=== PATIENT | female | born 1990 | race Caucasian/White ===

== ENCOUNTER 2017-09-01 18:02 | Emergency (ER) | payer MEDICAID ==
[2017-09-01 18:49] VITALS: BP 115/64
[2017-09-01] MEDS ORDERED: Lactated Ringers 1,000 ML IV ONE (19:09)
[2017-09-01] MEDS ORDERED: Ondansetron 4 MG/2 ML SDV IVPUSH ONE (19:19)
--- NOTE | 2017-09-01 19:25 | EDM.PDOC ---
ED HPI GENERAL MEDICAL PROBLEM - General Chief Complaint: Gastrointestinal Problem Stated Complaint: 14 WEEKS PG VOMITING LAST 6 HOURS Time Seen by Provider: 09/01/17 19:15 Source of Information: Reports: Patient, RN History Limitations: Reports: No Limitations - History of Present Illness INITIAL COMMENTS - FREE TEXT/NARRATIVE: 27 yo female at 15 weeks gestation presents with nausea and vomiting. Has had less of these sx's earlier in her preg, now light-headed with standing. Came here as it is closer to home. OB care in [place]. Onset: Gradual Duration: Week(s):, Getting Worse Location: Reports: Generalized Quality: Reports: Other (no pain) Severity: Moderate Improves with: Reports: None Worsens with: Reports: Other (? 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 PROFESSIONAL: Reports: Other (see below) (B6 and doxylamine) - Related Data Allergies Allergy/AdvReac Type Severity Reaction Status Date / Time amoxicillin trihydrate Allergy Cannot Verified 09/01/17 18:52 [From Augmentin] Remember potassium clavulanate Allergy Cannot Verified 09/01/17 18:52 [From Augmentin] Remember dogs Allergy Other Uncoded 09/01/17 18:52 milk protein extract Allergy Other Uncoded 09/01/17 18:52 Home Meds: Home Meds Doxylamine Succinate [Unisom Sleep Aid] 25 mg PO BEDTIME 09/01/17 [History] Fto114/FA/Omega3/Dha/Fish Oil [ Gummies] 2 tab PO DAILY 09/01/17 [ History] Pyridoxine HCl (Vitamin B6) [B-6] 200 mg PO DAILY 09/01/17 [History] Past Medical History - Past Health History Medical/Surgical History: Denies Medical/Surgical History HEENT History: Reports: Impaired Vision Cardiovascular History: Reports: Heart Murmur Respiratory History: Reports: Asthma Gastrointestinal History: Reports: Cholelithiasis Genitourinary History: Reports: Renal Calculus, UTI, Recurrent 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: , 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 Musculoskeletal History: Reports: Fracture Other Musculoskeletal History: wrist Psychiatric History: Reports: Anxiety, Depression - Past Surgical History GI Surgical History: Reports: Cholecystectomy Social & Family History - Tobacco Use Smoking Status *Q: Current Every Day Smoker Years of Tobacco use: 12 Packs/Tins Daily: 0.5 - Caffeine Use Caffeine Use: Reports: Coffee - Recreational Drug Use Recreational Drug Use: No ED ROS GENERAL - Review of Systems Review Of Systems: See Below Constitutional: Reports: Decreased Appetite HEENT: Reports: No Symptoms Respiratory: Reports: No Symptoms Cardiovascular: Reports: Lightheadedness GI/Abdominal: Reports: Decreased Appetite, Nausea, Vomiting. Denies: Abdominal Pain, Black Stool, Bloody Stool, Constipation, Diarrhea, Difficulty Swallowing, Distension, Flatus, Hematemesis, Hematochezia : Reports: No Symptoms Musculoskeletal: Reports: No Symptoms Skin: Reports: No Symptoms Neurological: Reports: No Symptoms Psychiatric: Reports: No Symptoms ED EXAM - Physical Exam Exam: See Below Exam Limited By: No Limitations General Appearance: Alert, WD/WN, No Apparent Distress Eye Exam: Bilateral Eye: Normal Inspection Ears: Normal External Exam, Normal Canal, Hearing Grossly Normal Nose: Normal Inspection, Normal Mucosa, No Blood Throat/Mouth: Normal Inspection, Normal Lips, Normal Teeth, Normal Oropharynx, Normal Voice, No Airway Compromise Head: Atraumatic, Normocephalic Neck: Normal Inspection, Supple, Non-Tender Respiratory/Chest: No Respiratory Distress, Lungs Clear, Normal Breath Sounds, No Accessory Muscle Use Cardiovascular: Regular Rate, Rhythm, No Edema GI/Abdominal Exam: Soft, Non-Tender, No Distention, Other (gravid) Back Exam: Normal Inspection. No: CVA Tenderness (R), CVA Tenderness (L) Extremities: Normal Inspection, Normal Range of Motion, Non-Tender, No Pedal Edema Neurological: Alert, Oriented, CN II-XII Intact, Normal Cognition, No Motor/ Sensory Deficits Psychiatric: Normal Affect, Normal Mood Skin Exam: Warm, Dry, Intact, Normal Color, No Rash Lymphatic: No Adenopathy Course - Vital Signs Last Recorded V/S: Last Vital Signs Temp 35.6 C 09/01/17 18:57 Pulse 89 09/01/17 18:57 Resp 16 09/01/17 18:57 BP 115/64 09/01/17 18:57 Pulse Ox 99 09/01/17 18:57 - Orders/Labs/Meds Meds: Medications Discontinued Medications Generic Name Dose Route Start Last Admin Trade Name Freq PRN Reason Stop Dose Admin Lactated Ringer's 1,000 mls @ 1,000 mls/hr 09/01/17 19:09 09/01/17 19:49 Ringers, Lactated IV 09/01/17 20:08 1,000 mls/hr BOLUS ONE Administration Ondansetron HCl 4 mg 09/01/17 19:19 09/01/17 19:49 Zofran IVPUSH 09/01/17 19:20 4 mg ONETIME ONE Administration Departure - Departure Time of Disposition: 20:35 Disposition: Home, Self-Care 01 Condition: Good Clinical Impression: Morning sickness, First trimester - Discharge Information Referrals: Roney Loo DPM [Primary Care Provider] - Forms: ED Department Discharge
== END 2017-09-01 21:32 | disposition home or self-care (01) ==
LOC: JP.ED 18:02
DX: O21.9 Vomiting of pregnancy, unspecified (principal); O99.332 Smoking (tobacco) complicating pregnancy, second trimester; F17.210 Nicotine dependence, cigarettes, uncomplicated; Z88.1 Allergy status to other antibiotic agents; Z91.09 Other allergy status, other than to drugs and biological substances; Z79.899 Other long term (current) drug therapy; Z3A.15 15 weeks gestation of pregnancy
CPT/HCPCS: 96361; 96374; 99284; J2405; J7120

== ENCOUNTER 2020-01-20 18:47 | Inpatient (IN) | payer MEDICAID ==
[2020-01-20] MEDS ORDERED: Naloxone 0.4 MG/ML SDV IVPUSH PRN (19:33)
[2020-01-20] MEDS ORDERED: diphenhydrAMINE 50 MG/ML SDV IVPUSH PRN ×2 (19:33)
[2020-01-20] MEDS ORDERED: ePHEDrine 50 MG/ML SDV IVPUSH PRN (19:33)
[2020-01-20] MEDS ORDERED: Lactated Ringers 1,000 ML IV ONE (19:33)
[2020-01-20] MEDS ORDERED: Sodium Chloride 0.9% 10 ML Syringe FLUSH PRN (19:33)
[2020-01-20] MEDS ORDERED: Ropivacaine 200 MG in Premix Bag 1 BAG EPIDUR SCH (19:45)
--- NOTE | 2020-01-20 20:24 | PCM.LDHP ---
L&D History of Present Illness - General Date of Service: 01/20/20 Admit Problem/Dx: Patient Status Order with Admit Dx/Problem 01/20/20 19:33 Patient Status [ADT] Routine Admission Diagnosis/Problem Admission Diagnosis/Problem Source of Information: Patient History Limitations: Reports: No Limitations - Related Data Allergies/Adverse Reactions: Allergies Allergy/AdvReac Type Severity Reaction Status Date / Time amoxicillin trihydrate Allergy Cannot Verified 01/20/20 19:05 [From Augmentin] Remember potassium clavulanate Allergy Cannot Verified 01/20/20 19:05 [From Augmentin] Remember dogs Allergy Other Uncoded 01/20/20 19:06 milk protein extract Allergy Other Uncoded 01/20/20 19:06 Home Medications: Home Meds Doxylamine Succinate [Unisom Sleep Aid] 25 mg PO BEDTIME PRN 09/01/17 [History] Pnv No.103/Folic/Om3s/Fish Oil [ Gummies] 2 tab PO DAILY 09/01/17 [History] hydrOXYzine pamoate [Vistaril] 25 mg PO BEDTIME PRN 01/20/20 [History] Past Medical History - Past Health History Medical/Surgical History: Denies Medical/Surgical History HEENT History: Reports: Impaired Vision Cardiovascular History: Reports: Heart Murmur Respiratory History: Reports: Asthma Gastrointestinal History: Reports: Cholelithiasis Genitourinary History: Reports: Renal Calculus, UTI, Recurrent 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: , 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 Musculoskeletal History: Reports: Fracture Other Musculoskeletal History: wrist Psychiatric History: Reports: Anxiety, Depression - Past Surgical History GI Surgical History: Reports: Cholecystectomy Social & Family History - Family History Family Medical History: Noncontributory - Tobacco Use Tobacco Use Status *Q: Current Every Day Tobacco User Years of Tobacco use: 10 Packs/Tins Daily: 0.2 Used Tobacco, but Quit: No Second Hand Smoke Exposure: No - Caffeine Use Caffeine Use: Reports: Coffee - Recreational Drug Use Recreational Drug Use: No H&P Review of Systems - Review of Systems: Review Of Systems: See Below General: Reports: No Symptoms HEENT: Reports: No Symptoms Pulmonary: Reports: No Symptoms Cardiovascular: Reports: No Symptoms Gastrointestinal: Reports: No Symptoms Genitourinary: Reports: No Symptoms Musculoskeletal: Reports: No Symptoms Skin: Reports: No Symptoms Psychiatric: Reports: No Symptoms Neurological: Reports: No Symptoms Hematologic/Lymphatic: Reports: No Symptoms Immunologic: Reports: No Symptoms L&D Exam - Exam Exam: See Below - Vital Signs Weight: 85.275 kg - OB Specific Contraction Intensity: Moderate to Strong Movement: Active Heart Tones: Present Heart Rate (FHR) Variability: Moderate (6-25 bmp) Presentation: Vertex - Santana Score Santana Score Cervix Position: Midposition Santana Score Consistency: Soft Santana Score Effacement: >80% Santana Score Dilation: 3-4 cm Santana Score Infant's Station: -1 ,0 Santana Score Total: 10 - Exam General: Alert, Oriented, Cooperative HEENT: PERRLA, Conjunctiva Clear, EACs Clear, EOMI, Hearing Intact, Mucosa Moist & [place], Nares Patent, Normal Nasal Septum, Posterior Pharynx Clear, Pupils Equal, Pupils Reactive, TMs Clear Neck: Supple, Trachea Midline Lungs: Clear to Auscultation, Normal Respiratory Effort Cardiovascular: Regular Rate, Regular Rhythm GI/Abdominal Exam: Normal Bowel Sounds, Soft, Non-Tender, No Organomegaly, No Distention, No Abnormal Bruit, No Mass, Pelvis Stable Rectal Exam: Normal Exam, Normal Rectal Tone Genitourinary: Normal external exam, Normal bimanual exam, Normal speculum exam Back Exam: Normal Inspection, Full Range of Motion Extremities: Normal Inspection, Normal Range of Motion, Non-Tender, No Pedal Edema, Normal Capillary Refill Skin: Warm, Dry, Intact Neurological: Cranial Nerves Intact, Reflexes Equal Bilateral Psychiatric: Alert, Normal Affect, Normal Mood - Patient Data Lab Results Last 24 hrs: Laboratory Results - last 24 hr 01/20/20 01/20/20 Range/Units 19:33 19:55 Urine Color Yellow (YELLOW) Urine Appearance Clear (CLEAR) Urine pH 7.0 (5.0-8.0) Ur Specific Sebastian 1.020 (1.008-1.030) Urine Protein Negative (NEGATIVE) mg/dL Urine Glucose (UA) Negative (NEGATIVE) mg/dL Urine Ketones Negative (NEGATIVE) mg/dL Urine Occult Blood Negative (NEGATIVE) Urine Nitrite Negative (NEGATIVE) Urine Bilirubin Negative (NEGATIVE) Urine Urobilinogen 0.2 (0.2-1.0) EU/dL Ur Leukocyte Esterase Negative (NEGATIVE) Urine RBC Not seen (0-5) Urine WBC Not seen (0-5) Ur Epithelial Cells Many Amorphous Sediment Few Urine Bacteria Rare Urine Opiates Screen Negative (NEGATIVE) Ur Oxycodone Screen Negative (NEGATIVE) Urine Methadone Screen Negative (NEGATIVE) Ur Propoxyphene Screen Negative (NEGATIVE) Ur Barbiturates Screen Negative (NEGATIVE) Ur Tricyclics Screen Negative (NEGATIVE) Ur Phencyclidine Scrn Negative (NEGATIVE) Ur Amphetamine Screen Negative (NEGATIVE) U Methamphetamines Scrn Negative (NEGATIVE) Urine MDMA Screen Negative (NEGATIVE) U Benzodiazepines Scrn Negative (NEGATIVE) U Cocaine Metab Screen Negative (NEGATIVE) U Marijuana (THC) Screen Negative (NEGATIVE) - Problem List (1) SNOMED Code(s): 12658809 ICD Code: Z34.90 - ENCNTR FOR SUPRVSN OF NORMAL , UNSP, UNSP TRIMESTER Status: Acute Current Visit: Yes Qualifiers: Weeks of gestation: 38 weeks Qualified Code(s): Z3A.38 - 38 weeks gestation of (2) Labor established SNOMED Code(s): 97568952 ICD Code: VGH2007 - Status: Acute Current Visit: Yes (3) Blood type, Rh negative Status: Acute Current Visit: Yes Problem List Initiated/Reviewed/Updated: Yes Orders Last 24hrs: Active Orders 24 hr Category Date Time Status Patient Status [ADT] Routine ADT 01/20/20 19:33 Active Ambulate [RC] PER UNIT ROUTINE Care 01/20/20 19:33 Active Communication Order [RC] ASDIRECTED Care 01/20/20 19:33 Active Communication Order [RC] ASDIRECTED Care 01/20/20 19:33 Active Communication Order [RC] ROUTINE Care 01/20/20 19:33 Active Communication Order [RC] ROUTINE Care 01/20/20 19:33 Active Communication Order [RC] ROUTINE Care 01/20/20 19:33 Active Non Stress Test [RC] Click to Edit Care 01/20/20 19:33 Active Insert Urinary Catheter [OM.PC] ASDIRECTED Care 01/20/20 19:45 Ordered Local Anesthetic Infusion Pump [RC] ASDIRECTED Care 01/20/20 19:33 Active Notify Provider Vital Signs [RC] PRN Care 01/20/20 19:33 Active Notify Provider [RC] PRN Care 01/20/20 19:33 Active Oxygen Therapy [RC] ASDIRECTED Care 01/20/20 19:33 Active PCEA Epidural [RC] ASDIRECTED Care 01/20/20 19:33 Active Peripheral IV Care [RC] . DIRECTED Care 01/20/20 19:34 Active Pulse Oximetry [RC] ASDIRECTED Care 01/20/20 19:33 Active Up ad Jacey [RC] ASDIRECTED Care 01/20/20 19:33 Active Urinary Catheter Assessment [RC] ASDIRECTED Care 01/20/20 19:34 Active VTE/DVT Education [RC] Click to Edit Care 01/20/20 19:36 Active Vital Signs [RC] PER UNIT ROUTINE Care 01/20/20 19:33 Active CBC WITH AUTO DIFF [HEME] Routine Lab 01/20/20 19:33 Ordered Lactated Ringers [Ringers, Lactated] 1,000 ml Med 01/20/20 19:33 Active IV .BOLUS Naloxone [Narcan] Med 01/20/20 19:33 Active 0.1 mg IVPUSH ASDIRECTED PRN Ropivacaine [Naropin 0.2%] 200 mg Med 01/20/20 19:45 Active Premix Bag 1 bag EPIDUR ASDIRECTED Sodium Chloride 0.9% [Saline Flush] Med 01/20/20 19:33 Active 10 ml FLUSH ASDIRECTED PRN diphenhydrAMINE [Benadryl] Med 01/20/20 19:33 Active 25 mg IVPUSH Q6H PRN diphenhydrAMINE [Benadryl] Med 01/20/20 19:33 Active 50 mg IVPUSH Q6H PRN ePHEDrine [ePHEDrine sulfate] Med 01/20/20 19:33 Active 10 mg IVPUSH ASDIRECTED PRN DVT/VTE Prophylaxis Reflex [OM.PC] Routine Oth 01/20/20 19:33 Ordered Epidural Catheter Management [OM.PC] Routine Oth 01/20/20 19:33 Ordered Epidural Catheter Management [OM.PC] Urgent Oth 01/20/20 19:33 Ordered Peripheral IV Insertion Pediatric [OM.PC] Routine Oth 01/20/20 19:33 Ordered Saline Lock Insert [OM.PC] Routine Oth 01/20/20 19:33 Ordered Resuscitation Status Routine Resus Stat 01/20/20 19:33 Ordered Medication Orders Diphenhydramine HCl (Benadryl) 25 mg IVPUSH Q6H PRN PRN Reason: Itching Diphenhydramine HCl (Benadryl) 50 mg IVPUSH Q6H PRN PRN Reason: Itching Ephedrine Sulfate (Ephedrine Sulfate) 10 mg IVPUSH ASDIRECTED PRN PRN Reason: Hypotension Lactated Ringer's (Ringers, Lactated) 1,000 mls @ 999 mls/hr IV .BOLUS ONE Stop: 01/20/20 20:33 Ropivacaine 200 mg/ Premix 100 mls @ 0 mls/hr EPIDUR ASDIRECTED GERARDO Naloxone HCl (Narcan) 0.1 mg IVPUSH ASDIRECTED PRN PRN Reason: Oversedation Sodium Chloride (Saline Flush) 10 ml FLUSH ASDIRECTED PRN PRN Reason: Keep Vein Open Assessment/Plan Comment:: 01/20/2020 29 yo here at 38 4/7 gestational weeks in active labor SVE-4/80/-1/0 Bulgy bag Contractions regular FHTs category one Plan- Monitor labor Monitor FHTs Admit patients, once IV in and CBC back patient requests epidural Epidural for pain management Pitocin if contractions slow after epidural Plan and anticipate a vaginal delivery
[2020-01-20] MEDS ORDERED: Ropivacaine 100 ML ONE (20:52)
[2020-01-20] MEDS: ePHEDrine 50 MG/ML SDV IVPUSH PRN ×2 (21:29→23:41)
[2020-01-21] MEDS: Calcium Carbonate 500 MG Tab.Chew PO PRN (00:28)
[2020-01-21] MEDS ORDERED: Docusate Sodium 100 MG Cap PO PRN (01:31)
[2020-01-21] MEDS ORDERED: Acetaminophen 325 MG Tab, 50 Tab Bulk Bottle PO PRN (01:31)
[2020-01-21] MEDS ORDERED: Lanolin 100% Cream 40 GM Tube TOP ONE (01:31)
[2020-01-21] MEDS ORDERED: Benzocaine 20% Top Spray 56 GM Bottle TOP ONE (01:31)
[2020-01-21] MEDS ORDERED: Ibuprofen 200 MG Tab, 24 Tab Bulk Bottle PO PRN (01:31)
[2020-01-21] MEDS ORDERED: Witch Hazel Medicated Pads 100/Jar TOP ONE (01:31)
--- NOTE | 2020-01-21 10:26 | PCM.DEL ---
L & D Note - General Info Date of Service: 01/21/20 Mother's Due Date: 01/30/20 - Delivery Note Labor: Spontaneous, Augmented by Oxytocin Delivery Outcome: Livebirth Infant Delivery Method: Spontaneous Vaginal Delivery-Single Infant Delivery Mode: Spontaneous Presentation: Vertex Nuchal Cord: Present, Reduced (times two and one around abdomen) Anesthesia Type: Epidural Amniotic Fluid Description: Clear Episiotomy Type: None Laceration: None Placenta: Intact, Spontaneous Cord: 3 Vessels Estimated Blood Loss: 250 : Suctioned (10 ml of clear mucous and liquid), Bulb Syringe, Stimulated, Warmed, [place] Used Provider: Tisha Palomino Score 1 min: 8 Score 5 min: 9 Second Stage Interventions: Reports: Second Nurse Assessed Progress of Descent, Second Nurse Reviewed Contraction Pattern, Second Nurse Reviewed Heart Tones, Encouragement Given, Pushing Effectively, Pushing, McRobert's Position, Pushing, Stirrups/Leg Supports Delivery Comments (Free Text/Narrative):: 01/21/2020 29 yo delivered a viable male in MARIE position over an intact perineum at 0100 on 01/21/2020. had a double nuchal cord that was easily reduced and then had a cord around the abdomen and was somersaulted through then placed on prewarmed blanket on mother's abdomen. was dried, stimulated and bulb suctioned. Began to cry some and pink in color. Delayed cord clamping was done for approximately 90 seconds, then cord was double clamped about cut by father of infant. Infant was then brought skin to skin with mother. Placenta then came intact and kenisha, three vessel cord, EBL-250, small skid on perineal area, no other lacerations noted of cervix, labia, vagina, or rectum. AGARS-8/9, weight- 8lbs 0oz, length-19 inches. did seem to have poorer tone and lung sounds were wet, provider did deep suction times three for 10.5ml of clear amniotic fluid, then pinked in color and cried vigorously, lungs then clear. then returned skin to skin with mother and both stable in labor and delivery room. Stages- [id number] - General Info Date of Service: 01/21/20 Functional Status: Reports: Pain Controlled - Review of Systems General: Reports: No Symptoms HEENT: Reports: No Symptoms Pulmonary: Reports: No Symptoms Cardiovascular: Reports: No Symptoms Gastrointestinal: Reports: No Symptoms Genitourinary: Reports: No Symptoms Musculoskeletal: Reports: No Symptoms Skin: Reports: No Symptoms Neurological: Reports: No Symptoms Psychiatric: Reports: No Symptoms - Patient Data Vitals - Most Recent: Last Vital Signs Temp 36.0 C L 01/21/20 10:09 Pulse 101 H 01/21/20 10:09 Resp 18 01/21/20 10:09 BP 117/59 L 01/21/20 10:09 Pulse Ox 99 01/21/20 10:09 Weight - Most Recent: 85.275 kg I&O - Last 24 Hours: Intake & Output 01/20/20 01/21/20 01/21/20 22:59 06:59 14:59 Intake Total 2 Balance 2 Lab Results Last 24 Hours: Laboratory Results - last 24 hr 01/20/20 01/20/20 01/20/20 Range/Units 19:33 19:33 19:55 WBC 13.0 H (4.5-11.0) K/uL RBC 3.87 (3.30-5.50) M/uL Hgb 12.2 (12.0-15.0) g/dL Hct 37.0 (36.0-48.0) % MCV 96 (80-98) fL MCH 32 H (27-31) pg MCHC 33 (32-36) % Plt Count 227 (150-400) K/uL Neut % (Auto) 65 (36-66) % Lymph % (Auto) 24 (24-44) % Reynolds % (Auto) 9 H (2-6) % Eos % (Auto) 2 (2-4) % Baso % (Auto) 0 (0-1) % Urine Color Yellow (YELLOW) Urine Appearance Clear (CLEAR) Urine pH 7.0 (5.0-8.0) Ur Specific [place] 1.020 (1.008-1.030) Urine Protein Negative (NEGATIVE) mg/dL Urine Glucose (UA) Negative (NEGATIVE) mg/dL Urine Ketones Negative (NEGATIVE) mg/dL Urine Occult Blood Negative (NEGATIVE) Urine Nitrite Negative (NEGATIVE) Urine Bilirubin Negative (NEGATIVE) Urine Urobilinogen 0.2 (0.2-1.0) EU/dL Ur Leukocyte Esterase Negative (NEGATIVE) Urine RBC Not seen (0-5) Urine WBC Not seen (0-5) Ur Epithelial Cells Many Amorphous Sediment Few Urine Bacteria Rare Urine Opiates Screen Negative (NEGATIVE) Ur Oxycodone Screen Negative (NEGATIVE) Urine Methadone Screen Negative (NEGATIVE) Ur Propoxyphene Screen Negative (NEGATIVE) Ur Barbiturates Screen Negative (NEGATIVE) Ur Tricyclics Screen Negative (NEGATIVE) Ur Phencyclidine Scrn Negative (NEGATIVE) Ur Amphetamine Screen Negative (NEGATIVE) U Methamphetamines Scrn Negative (NEGATIVE) Urine MDMA Screen Negative (NEGATIVE) U Benzodiazepines Scrn Negative (NEGATIVE) U Cocaine Metab Screen Negative (NEGATIVE) U Marijuana (THC) Screen Negative (NEGATIVE) Blood Type Gel Antibody Screen Rhogam Indicated 01/21/20 Range/Units 06:15 WBC (4.5-11.0) K/uL RBC (3.30-5.50) M/uL Hgb (12.0-15.0) g/dL Hct (36.0-48.0) % MCV (80-98) fL MCH (27-31) pg MCHC (32-36) % Plt Count (150-400) K/uL Neut % (Auto) (36-66) % Lymph % (Auto) (24-44) % Reynolds % (Auto) (2-6) % Eos % (Auto) (2-4) % Baso % (Auto) (0-1) % Urine Color (YELLOW) Urine Appearance (CLEAR) Urine pH (5.0-8.0) Ur Specific [place] (1.008-1.030) Urine Protein (NEGATIVE) mg/dL Urine Glucose (UA) (NEGATIVE) mg/dL Urine Ketones (NEGATIVE) mg/dL Urine Occult Blood (NEGATIVE) Urine Nitrite (NEGATIVE) Urine Bilirubin (NEGATIVE) Urine Urobilinogen (0.2-1.0) EU/dL Ur Leukocyte Esterase (NEGATIVE) Urine RBC (0-5) Urine WBC (0-5) Ur Epithelial Cells Amorphous Sediment Urine Bacteria Urine Opiates Screen (NEGATIVE) Ur Oxycodone Screen (NEGATIVE) Urine Methadone Screen (NEGATIVE) Ur Propoxyphene Screen (NEGATIVE) Ur Barbiturates Screen (NEGATIVE) Ur Tricyclics Screen (NEGATIVE) Ur Phencyclidine Scrn (NEGATIVE) Ur Amphetamine Screen (NEGATIVE) U Methamphetamines Scrn (NEGATIVE) Urine MDMA Screen (NEGATIVE) U Benzodiazepines Scrn (NEGATIVE) U Cocaine Metab Screen (NEGATIVE) U Marijuana (THC) Screen (NEGATIVE) Blood Type O NEGATIVE Gel Antibody Screen Negative Rhogam Indicated Yes, baby rh pos Med Orders - Current: Current Medications Acetaminophen (Tylenol Bulk Bottle) 0 mg PO Q4H PRN PRN Reason: Pain Last Admin: 01/21/20 03:28 Dose: 1 bottle Documented by: Calcium Carbonate/Glycine (Tums) 1,000 mg PO Q2H PRN PRN Reason: Indigestion Last Admin: 01/21/20 00:28 Dose: 1,000 mg Documented by: Diphenhydramine HCl (Benadryl) 25 mg IVPUSH Q6H PRN PRN Reason: Itching Diphenhydramine HCl (Benadryl) 50 mg IVPUSH Q6H PRN PRN Reason: Itching Docusate Sodium (Colace) 100 mg PO BID PRN PRN Reason: Constipation Oxytocin/Sodium Chloride (Pitocin In Ns 20 Units/1,000 Ml) 20 unit in 1,000 mls @ 6 mls/hr IV TITRATE GERARDO; Protocol Last Titration: 01/21/20 00:28 Dose: 5 munits/min, 15 mls/hr Documented by: Ibuprofen (Motrin Bulk Bottle) 600 mg PO Q6H PRN PRN Reason: Pain Last Admin: 01/21/20 03:14 Dose: 600 mg Documented by: Naloxone HCl (Narcan) 0.1 mg IVPUSH ASDIRECTED PRN PRN Reason: Oversedation Sodium Chloride (Saline Flush) 10 ml FLUSH ASDIRECTED PRN PRN Reason: Keep Vein Open Discontinued Medications Benzocaine ([id number] 20% [place]) 0 gm TOP ONETIME ONE Stop: 01/21/20 01:32 Last Admin: 01/21/20 03:15 Dose: 1 bottle Documented by: Emollient Ointment (Lansinoh Hpa) 1 gm TOP ONETIME ONE Stop: 01/21/20 01:32 Last Admin: 01/21/20 03:15 Dose: 1 bottle Documented by: Ephedrine Sulfate (Ephedrine Sulfate) 10 mg IVPUSH ASDIRECTED PRN PRN Reason: Hypotension Last Admin: 01/20/20 23:41 Dose: 10 mg Documented by: Ephedrine Sulfate (Ephedrine Sulfate) 10 mg IVPUSH ASDIRECTED PRN PRN Reason: Hypotension Lactated Ringer's (Ringers, Lactated) 1,000 mls @ 999 mls/hr IV .BOLUS ONE Stop: 01/20/20 20:33 Last Admin: 01/20/20 19:30 Dose: 999 mls/hr Documented by: Ropivacaine 200 mg/ Premix 100 mls @ 0 mls/hr EPIDUR ASDIRECTED GERARDO Ropivacaine (Naropin 0.2%) Confirm Administered Dose 100 mls @ as directed .ROUTE .STK-MED ONE Stop: 01/20/20 20:53 Joelle Carrizales (Rasheed) 1 pad TOP ONETIME ONE Stop: 01/21/20 01:32 Last Admin: 01/21/20 03:27 Dose: 1 bottle Documented by: - Exam General: Alert, Oriented HEENT: Pupils Equal, Pupils Reactive, EOMI, Mucous Membr. Moist/[place] Neck: Supple Lungs: Clear to Auscultation, Normal Respiratory Effort Cardiovascular: Regular Rate, Regular Rhythm GI/Abdominal Exam: Normal Bowel Sounds, Soft, Non-Tender, No Organomegaly, No Distention, No Abnormal Bruit, No Mass, Pelvis Stable (Female) Exam: Normal External Exam, Normal Speculum Exam, Normal Bimanual Exam, Enlarged Uterus, Vaginal Bleeding Back Exam: Normal Inspection, Full Range of Motion Extremities: Normal Inspection, Normal Range of Motion, Non-Tender, No Pedal Edema, Normal Capillary Refill Skin: Warm, Dry, Intact Neurological: No New Focal Deficit Psy/Mental Status: Alert, Normal Affect, Normal Mood - Problem List & Annotations (1) SNOMED Code(s): 96604519 Code(s): Z34.90 - ENCNTR FOR SUPRVSN OF NORMAL , UNSP, UNSP TRIMESTER Status: Acute Current Visit: Yes Qualifiers: Weeks of gestation: 38 weeks Qualified Code(s): Z3A.38 - 38 weeks gestation of (2) Labor established SNOMED Code(s): 12366924 Code(s): IBJ1055 - Status: Acute Current Visit: Yes (3) Blood type, Rh negative Status: Acute Current Visit: Yes (4) () SNOMED Code(s): 665530280 Code(s): Z78.9 - OTHER SPECIFIED HEALTH STATUS Status: Acute Current Visit: Yes (5) Vaginal delivery SNOMED Code(s): 749919806 Code(s): O80 - ENCOUNTER FOR FULL-TERM UNCOMPLICATED DELIVERY Status: Acute Current Visit: Yes - Problem List Review Problem List Initiated/Reviewed/Updated: Yes - My Orders Last 24 Hours: My Active Orders 01/20/20 19:33 Patient Status [ADT] Routine Ambulate [RC] PER UNIT ROUTINE Notify Provider Vital Signs [RC] PRN Oxygen Therapy [RC] ASDIRECTED Up ad Jacey [RC] ASDIRECTED Vital Signs [RC] Q4H Naloxone [Narcan] 0.1 mg IVPUSH ASDIRECTED PRN Sodium Chloride 0.9% [Saline Flush] 10 ml FLUSH ASDIRECTED PRN diphenhydrAMINE [Benadryl] 25 mg IVPUSH Q6H PRN diphenhydrAMINE [Benadryl] 50 mg IVPUSH Q6H PRN DVT/VTE Prophylaxis Reflex [OM.PC] Routine Epidural Catheter Management [OM.PC] Routine Epidural Catheter Management [OM.PC] Urgent Peripheral IV Insertion Pediatric [OM.PC] Routine Saline Lock Insert [OM.PC] Routine Resuscitation Status Routine 01/20/20 19:34 Peripheral IV Care [RC] Q12H 01/20/20 19:45 Insert Urinary Catheter [OM.PC] ASDIRECTED 01/20/20 20:30 Oxytocin/Normal Saline [Pitocin in NS 20 Units/1,000 ML] 20 unit in 1,000 ml IV TITRATE 01/21/20 00:05 Calcium Carbonate [Tums] 1,000 mg PO Q2H PRN 01/21/20 01:31 Patient Status [ADT] Routine Acetaminophen [Tylenol Bulk Bottle] See Dose Instructions PO Q4H PRN Docusate Sodium [Colace] 100 mg PO BID PRN Ibuprofen [Motrin Bulk Bottle] 600 mg PO Q6H PRN Assess Lochia [WOMSER] Per Unit Routine Assess Uterine Involution [WOMSER] Per Unit Routine 01/21/20 01:32 Ice Therapy [OM.PC] Per Unit Routine Perineal Care [OM.PC] Per Unit Routine Sitz Bath [OM.PC] Per Unit Routine 01/21/20 06:15 SCREEN [BBK] Routine RHIG WORKUP, [BBK] Routine 01/21/20 Breakfast Regular Diet [DIET] 01/22/20 06:00 CBC WITH AUTO DIFF [HEME] Routine - Assessment Assessment:: 01/21/2020 29 yo G4 now P3 delivered without complications at 38 5/7 RH negative - Plan Plan:: 01/20/2020 29 yo here at 38 4/7 gestational weeks in active labor SVE-4/80/-1/0 Bulgy bag Contractions regular FHTs category one Plan- Monitor labor Monitor FHTs Admit patients, once IV in and CBC back patient requests epidural Epidural for pain management Pitocin if contractions slow after epidural Plan and anticipate a vaginal delivery 01/21/2020 Routine cares Encourage and support Plan discharge in 24-48 hours
[2020-01-22] MEDS: Calcium Carbonate 500 MG Tab.Chew PO PRN (04:35)
[2020-01-22 07:38] VITALS: BP 119/71; PULSE 89
--- NOTE | 2020-01-22 09:56 | PCM.PNPP ---
- General Info Date of Service: 01/22/20 Functional Status: Reports: Pain Controlled - Review of Systems General: Reports: No Symptoms HEENT: Reports: No Symptoms Pulmonary: Reports: No Symptoms Cardiovascular: Reports: No Symptoms Gastrointestinal: Reports: No Symptoms Genitourinary: Reports: No Symptoms Musculoskeletal: Reports: No Symptoms Skin: Reports: No Symptoms Neurological: Reports: No Symptoms Psychiatric: Reports: No Symptoms - General Info Date of Service: 01/22/20 - Patient Data Vital Signs - Most Recent: Last Vital Signs Temp 36.0 C L 01/22/20 07:37 Pulse 89 01/22/20 07:37 Resp 16 01/22/20 07:37 BP 119/71 01/22/20 07:37 Pulse Ox 98 01/22/20 07:37 Weight - Most Recent: 85.275 kg I&O - Last 24 Hours: Intake & Output 01/21/20 01/22/20 01/22/20 22:59 06:59 14:59 Intake Total 2700 Balance 2700 Lab Results - Last 24 Hours: Laboratory Results - last 24 hr 01/21/20 01/22/20 Range/Units 06:15 06:02 WBC 12.3 H (4.5-11.0) K/uL RBC 3.20 L (3.30-5.50) M/uL Hgb 9.8 L D (12.0-15.0) g/dL Hct 31.3 L (36.0-48.0) % MCV 98 (80-98) fL MCH 31 (27-31) pg MCHC 31 L (32-36) % Plt Count 215 (150-400) K/uL Neut % (Auto) 65 (36-66) % Lymph % (Auto) 25 (24-44) % [place] % (Auto) 7 H (2-6) % Eos % (Auto) 3 (2-4) % Baso % (Auto) 0 (0-1) % Screen Neg Med Orders - Current: Current Medications Acetaminophen (Tylenol Bulk Bottle) 0 mg PO Q4H PRN PRN Reason: Pain Last Admin: 01/21/20 03:28 Dose: 1 bottle Documented by: Calcium Carbonate/Glycine (Tums) 1,000 mg PO Q2H PRN PRN Reason: Indigestion Last Admin: 01/22/20 04:35 Dose: 1,000 mg Documented by: Diphenhydramine HCl (Benadryl) 25 mg IVPUSH Q6H PRN PRN Reason: Itching Diphenhydramine HCl (Benadryl) 50 mg IVPUSH Q6H PRN PRN Reason: Itching Docusate Sodium (Colace) 100 mg PO BID PRN PRN Reason: Constipation Oxytocin/Sodium Chloride (Pitocin In Ns 20 Units/1,000 Ml) 20 unit in 1,000 mls @ 6 mls/hr IV TITRATE GERARDO; Protocol Last Titration: 01/21/20 00:28 Dose: 5 munits/min, 15 mls/hr Documented by: Ibuprofen (Motrin Bulk Bottle) 600 mg PO Q6H PRN PRN Reason: Pain Last Admin: 01/21/20 03:14 Dose: 600 mg Documented by: Naloxone HCl (Narcan) 0.1 mg IVPUSH ASDIRECTED PRN PRN Reason: Oversedation Sodium Chloride (Saline Flush) 10 ml FLUSH ASDIRECTED PRN PRN Reason: Keep Vein Open Discontinued Medications Benzocaine ([id number] 20% [place]) 0 gm TOP ONETIME ONE Stop: 01/21/20 01:32 Last Admin: 01/21/20 03:15 Dose: 1 bottle Documented by: Emollient Ointment (Lansinoh Hpa) 1 gm TOP ONETIME ONE Stop: 01/21/20 01:32 Last Admin: 01/21/20 03:15 Dose: 1 bottle Documented by: Ephedrine Sulfate (Ephedrine Sulfate) 10 mg IVPUSH ASDIRECTED PRN PRN Reason: Hypotension Last Admin: 01/20/20 23:41 Dose: 10 mg Documented by: Ephedrine Sulfate (Ephedrine Sulfate) 10 mg IVPUSH ASDIRECTED PRN PRN Reason: Hypotension Lactated Ringer's (Ringers, Lactated) 1,000 mls @ 999 mls/hr IV .BOLUS ONE Stop: 01/20/20 20:33 Last Admin: 01/20/20 19:30 Dose: 999 mls/hr Documented by: Ropivacaine 200 mg/ Premix 100 mls @ 0 mls/hr EPIDUR ASDIRECTED GERARDO Ropivacaine (Naropin 0.2%) Confirm Administered Dose 100 mls @ as directed .ROUTE .STK-MED ONE Stop: 01/20/20 20:53 Joelle Carrizales (Rasheed) 1 pad TOP ONETIME ONE Stop: 01/21/20 01:32 Last Admin: 01/21/20 03:27 Dose: 1 bottle Documented by: - Interaction Disposition, : [place] in Room with Family Interaction: Holding Infant Infant Feeding: Breastfed Infant; Nursed Well Support Person: - Recovery Exam Fundal Tone: Firm Fundal Level: At Umbilicus Fundal Placement: Midline Lochia Amount: Small Lochia Color: Rubra/Red Perineum Description: Intact, Minimal Bruising/Swelling Episiotomy/Laceration: None Bladder Status: Voiding Urinary Elimination: Voided Other Urinary Elimination, : DTV - Exam General: Alert, Oriented HEENT: Pupils Equal, Pupils Reactive, EOMI, Mucous Membr. Moist/[place] Neck: Supple Lungs: Clear to Auscultation, Normal Respiratory Effort Cardiovascular: Regular Rate, Regular Rhythm GI/Abdominal Exam: Normal Bowel Sounds, Soft, Non-Tender, No Organomegaly, No Distention, No Abnormal Bruit, No Mass, Pelvis Stable Extremities: Normal Inspection, Normal Range of Motion, Non-Tender, No Pedal Edema, Normal Capillary Refill Skin: Warm, Dry, Intact Neurological: No New Focal Deficit Psy/Mental Status: Alert, Normal Affect, Normal Mood - Problem List & Annotations (1) SNOMED Code(s): 80381732 Code(s): Z34.90 - ENCNTR FOR SUPRVSN OF NORMAL , UNSP, UNSP TRIMESTER Status: Acute Current Visit: Yes Qualifiers: Weeks of gestation: 38 weeks Qualified Code(s): Z3A.38 - 38 weeks gestation of (2) Labor established SNOMED Code(s): 04415238 Code(s): LJE0418 - Status: Acute Current Visit: Yes (3) Blood type, Rh negative Status: Acute Current Visit: Yes (4) () SNOMED Code(s): 157326365 Code(s): Z78.9 - OTHER SPECIFIED HEALTH STATUS Status: Acute Current Visit: Yes (5) Vaginal delivery SNOMED Code(s): 264405978 Code(s): O80 - ENCOUNTER FOR FULL-TERM UNCOMPLICATED DELIVERY Status: Acute Current Visit: Yes - Problem List Review Problem List Initiated/Reviewed/Updated: Yes - Assessment Assessment:: 01/21/2020 29 yo G4 now P3 delivered without complications at 38 5/7 RH negative 01/22/2020 Day One well Fundus firm and bleeding decreased Voiding and passing gas Rhogam given - Plan Plan:: 01/20/2020 29 yo here at 38 4/7 gestational weeks in active labor SVE-/-1/0 Bulgy bag Contractions regular FHTs category one Plan- Monitor labor Monitor FHTs Admit patients, once IV in and CBC back patient requests epidural Epidural for pain management Pitocin if contractions slow after epidural Plan and anticipate a vaginal delivery 01/21/2020 Routine cares Encourage and support Plan discharge in 24-48 hours 01/22/2020 Continue routine cares Continue to encourage and support Discharge home today To [facility] in clinic in six weeks for visit
== END 2020-01-22 11:45 | disposition home or self-care (01) | DRG 807 ==
LOC: JP.OBCHECK 18:47 → JP.OB 19:27 → OBSVTOIN 01-21 01:00 → JP.MS 01-21 06:12
PROVIDERS: ADMIT Advanced Practice Midwife; ATTEND Advanced Practice Midwife
PROC: 10E0XZZ Delivery of Products of Conception, External Approach (ICD-10-PCS; principal; 2020-01-21)
PROC: 3E0R3BZ Introduction of Anesthetic Agent into Spinal Canal, Percutaneous Approach (ICD-10-PCS; 2020-01-21)
PROC: 10907ZC Drainage of Amniotic Fluid, Therapeutic from Products of Conception, Via Natural or Artificial Opening (ICD-10-PCS; 2020-01-21)
PROC: 3E0334Z Introduction of Serum, Toxoid and Vaccine into Peripheral Vein, Percutaneous Approach (ICD-10-PCS; 2020-01-21)
DX: O99.334 Smoking (tobacco) complicating childbirth (principal); Z37.0 Single live birth; Z88.1 Allergy status to other antibiotic agents; Z88.8 Allergy status to other drugs, medicaments and biological substances; F17.210 Nicotine dependence, cigarettes, uncomplicated; Z3A.38 38 weeks gestation of pregnancy; O99.344 Other mental disorders complicating childbirth; F41.9 Anxiety disorder, unspecified; F32.9 Major depressive disorder, single episode, unspecified; O69.81X0 Labor and delivery complicated by cord around neck, without compression, not applicable or unspecified; O26.893 Other specified pregnancy related conditions, third trimester
CPT/HCPCS: 36415; 51702; 59409; 80305-QW; 81001; 85025; 85460; 86850; 86900; 86901; 99211; A9270-GY; J2590; J2790; J2795; J7120

== ENCOUNTER 2022-06-18 17:50 | Emergency (ER) | payer MEDICAID ==
[2022-06-18 18:05] VITALS: BP 141/84; PULSE 92
[2022-06-18 19:17] LABS: ESTIMATED GFR 130 mL/min (>60)
== END 2022-06-18 21:56 | disposition home or self-care (01) ==
LOC: JP.ED 17:50
DX: O9A.211 Injury, poisoning and certain other consequences of external causes complicating pregnancy, first trimester (principal); S39.011A Strain of muscle, fascia and tendon of abdomen, initial encounter; Z91.011 Allergy to milk products; Z91.09 Other allergy status, other than to drugs and biological substances; Z72.0 Tobacco use; Z3A.01 Less than 8 weeks gestation of pregnancy
CPT/HCPCS: 36415; 76801; 80053; 81001; 84702; 85025; 86140; 99284-25

== ENCOUNTER 2023-05-31 12:21 | Emergency (ER) | payer MEDICAID ==
[2023-05-31 13:04] VITALS: BP 123/71; PULSE 96
[2023-05-31 13:10] LABS: CORONAVIRUS COVID-19 NAA NEGATIVE (NEGATIVE); INFLUENZA A NAA NEGATIVE (NEGATIVE); INFLUENZA B NAA NEGATIVE (NEGATIVE); RESPIRATORY SYNCYTIAL VIR NAA NEGATIVE (NEGATIVE)
[2023-05-31] MEDS: Albuterol/Ipratropium 3.0-0.5 MG/3 ML Neb Soln NEB ONE (13:19)
[2023-05-31] MEDS: Codeine/guaiFENesin 10-100 MG/5 ML Syrup 5 ML Cup PO ONE (13:19)
[2023-05-31 13:30] LABS: BASOPHILS ABSOLUTE AUTO 0.07 K/uL (0.00-0.10); BASOPHILS PERCENT AUTO 0.7 % (0.1-1.3); EOSINOPHILS ABSOLUTE AUTO 0.35 K/uL (0.00-0.40); EOSINOPHILS PERCENT AUTO 3.3 % (0.0-5.4); HEMATOCRIT 38.4 % (34.3-46.0); HEMOGLOBIN 13.3 g/dL (11.2-15.5); IMMATURE GRAN ABSOLUTE AUTO 0.03 K/uL (0.00-0.23); IMMATURE GRAN PERCENT AUTO 0.3 % (0.0-0.7); LYMPHOCYTES ABSOLUTE AUTO 2.17 K/uL (0.8-3.3); LYMPHOCYTES PERCENT AUTO 20.4 % (11.4-47.7); MEAN CORPUSCULAR HEMOGLOBIN 30.9 pg (31.6-35.5); MEAN CORPUSCULAR HGB CONC 34.6 g/dL (31.6-35.5); MEAN CORPUSCULAR VOLUME 89.1 fL (81.4-99.0); MONOCYTES ABSOLUTE AUTO 0.63 K/uL (0.20-0.90); MONOCYTES PERCENT AUTO 5.9 % (3.3-12.6); NEUTROPHILS PERCENT AUTO 69.4 % (40.0-78.1); PLATELET COUNT,PLT 217 K/uL (130-375); RED BLOOD CELL COUNT 4.31 M/uL (3.77-5.24); WHITE BLOOD CELL COUNT,WBC 10.7 K/uL (3.2-11.0)
[2023-05-31 13:52] LABS: ANION GAP 12.1 mmol/L (5.0-14.0); CALCIUM 9.2 mg/dL (8.5-10.1); CREATININE 0.6 mg/dL (0.6-1.0); EST CRCL DRUG DOSING (CG) 108.43 mL/min; POTASSIUM,K 4.4 mmol/L (3.6-5.2)
== END 2023-05-31 14:24 | disposition home or self-care (01) ==
LOC: JP.ED 12:21
DX: B34.9 Viral infection, unspecified (principal); J45.909 Unspecified asthma, uncomplicated; Z88.1 Allergy status to other antibiotic agents; Z91.048 Other nonmedicinal substance allergy status; Z91.011 Allergy to milk products; Z90.49 Acquired absence of other specified parts of digestive tract
CPT/HCPCS: 0241U; 36415; 71046; 80048; 83605; 84484; 85025; 94640; 99285; A9270; J7620

== ENCOUNTER 2024-11-07 20:46 | Emergency (ER) | payer MEDICAID ==
[2024-11-07 22:25] LABS: BASOPHILS ABSOLUTE AUTO 0.08 K/uL (0.00-0.10); BASOPHILS PERCENT AUTO 0.9 % (0.1-1.3); EOSINOPHILS ABSOLUTE AUTO 0.31 K/uL (0.00-0.40); EOSINOPHILS PERCENT AUTO 3.6 % (0.0-5.4); IMMATURE GRAN PERCENT AUTO 0.2 % (0.0-0.7); LYMPHOCYTES ABSOLUTE AUTO 2.68 K/uL (0.8-3.3); LYMPHOCYTES PERCENT AUTO 31.1 % (11.4-47.7); MONOCYTES ABSOLUTE AUTO 0.57 K/uL (0.20-0.90); MONOCYTES PERCENT AUTO 6.6 % (3.3-12.6); NEUTROPHILS ABSOLUTE AUTO 4.95 K/uL (1.0-7.6); NEUTROPHILS PERCENT AUTO 57.6 % (40.0-78.1); PLATELET COUNT,PLT 246 K/uL (130-375); RED BLOOD CELL COUNT 3.32 M/uL (3.77-5.24); WHITE BLOOD CELL COUNT,WBC 8.6 K/uL (3.2-11.0)
[2024-11-07 22:26] LABS: IMMATURE GRAN ABSOLUTE AUTO 0.02 K/uL (0.00-0.23)
[2024-11-07 22:45] LABS: A/G RATIO 1.2 (1.2-2.2); ALANINE AMINOTRANSFERASE,ALT 32 U/L (12-78); ASPARTATE AMNIOTRANSFERASE,AST 11 U/L (15-37); BILIRUBIN TOTAL 0.2 mg/dL (0.2-1.0); BLOOD UREA NITROGEN,BUN 17 mg/dL (7-18); CARBON DIOXIDE,CO2 31 mmol/L (21-32); CHLORIDE,CL 106 mmol/L (100-108); CREATININE 0.5 mg/dL (0.6-1.0); EST CRCL DRUG DOSING (CG) 127.76 mL/min; ESTIMATED GFR 128 mL/min (>60); GLUCOSE RANDOM 98 mg/dL (74-106); POTASSIUM,K 3.8 mmol/L (3.6-5.2); PROTEIN TOTAL,TP 6.2 g/dL (6.4-8.2); SODIUM,NA 141 mmol/L (140-148)
[2024-11-07 23:06] VITALS: BP 130/76; PULSE 82
== END 2024-11-07 23:30 | disposition home or self-care (01) ==
LOC: JP.ED 20:46
DX: M79.604 Pain in right leg (principal); Z88.0 Allergy status to penicillin; Z88.8 Allergy status to other drugs, medicaments and biological substances; Z91.011 Allergy to milk products; Z90.49 Acquired absence of other specified parts of digestive tract; Z90.710 Acquired absence of both cervix and uterus
CPT/HCPCS: 36415; 80053; 85025; 85379; 99284